=== PATIENT | female | born 1970 | race Caucasian/White ===

== ENCOUNTER 2016-08-20 15:18 | Emergency (ER) | payer OTHER ==
[~2016-08-20] VITALS: Ht 149.9 cm; Wt 86.6 kg
[~2016-08-20 15:18] MED LIST: CRESTOR5 MG PO; MICROZIDE12.5 M1 PO; MOBIC7.5 MG PO; PREDNISONE10 M1 PO; PREDNISONE20 MG PO; VICODIN 5-3001 EACH PO
[2016-08-20 15:43] VITALS: BP 103/89
[2016-08-20 16:35] LABS: INTERNAL CONTROL VALID? YES
[2016-08-20] MEDS ORDERED: NEURONTIN300 MG PO (16:45)
[2016-08-20] MEDS ORDERED: LOSARTAN POTASS25 MG PO (16:46)
[2016-08-20] MEDS ORDERED: LEXAPRO10 MG PO (16:47)
[2016-08-20 16:49] LABS: ADD MIUA? YES; BILIRUBIN NEGATIVE; BLOOD NEGATIVE; COLOR YELLOW ((YELLOW)); GLUCOSE (STRIP) NEGATIVE; KETONES NEGATIVE; LEUKOCYTES SMALL; NITRITE NEGATIVE; PROTEIN (STRIP) 100; SPECIFIC GRAVITY 1.024 (1.000-1.030)
[2016-08-20 17:20] LABS: BACTERIA 1+ /HPF; EPITHELIAL CELLS 4+ /HPF; MUCUS NONE SEEN /LPF; RED BLOOD CELLS 0-5 /HPF (0-5)
[2016-08-20] MEDS ORDERED: MOTRIN800 MG PO (17:24)
== END 2016-08-20 18:01 | disposition home or self-care (01) ==
LOC: RME 15:18 → EME 15:18 → RME 18:01
PROVIDERS: Physician Assistant
DX: S80.01XA Contusion of right knee, initial encounter (principal); M23.91 Unspecified internal derangement of right knee; R30.0 Dysuria; M17.11 Unilateral primary osteoarthritis, right knee; R10.2 Pelvic and perineal pain; W18.30XA Fall on same level, unspecified, initial encounter; I10 Essential (primary) hypertension; Z85.528 Personal history of other malignant neoplasm of kidney; Z72.0 Tobacco use
CPT/HCPCS: 73564; 81003; 84703; 99281; 99284